=== PATIENT | female | born 1985 | race Caucasian/White ===

== ENCOUNTER 2021-10-31 11:56 | Emergency (ER) | payer OTHER, SELFPAY ==
[2021-10-31 11:57] VITALS: BP 147/66; PULSE 79; RESP 16; TEMP 36.5; O2SAT 98; BMI 25.0
--- NOTE | 2021-10-31 12:28 | ED_ITS ---
HPI - Eye Problem General Chief complaint: Eye Problems Stated complaint: Swollen eye Time Seen by Provider: 10/31/21 12:12 Source: patient Mode of arrival: ambulatory Limitations: no limitations History of Present Illness HPI Narrative: 36 y/o female presents to the ER with left eye lid redness, swelling and discomfort when she woke up this morning. She denies any discharge or crusting and no vision changes. No sensation or foriegn body. She does not wear contacts and only wears glasses as needed. She has no URI symptoms. chief complaint: eye pain and eye redness Onset (ago): hour(s) Onset description: sudden Duration: constant Location: left eye Eye Symptoms: redness and pain Place: home Mechanism: none Severity: mild Severity scale (1-10): 4 If Pain, Quality: aching Associated symptoms: none Treatments Prior to Arrival: none Related Data Previous Rx's Medication Instructions Recorded erythromycin 5 mg/gram (0.5 %) eye 0.5 inch OPHTHALMIC (EYE) BID #3.5 10/31/21 ointment g Allergies Allergy/AdvReac Type Severity Reaction Status Date / Time acetaminophen [From TYLENOL] Allergy Unknown UNKNOWN Unverified 05/22/20 16:15 shellfish derived Allergy Unknown HIVES Unverified 05/22/20 16:15 [SHELLFISH DERIVED] From PHENERGAN Allergy Unknown MUSCLE Uncoded 05/22/20 16:15 SPASMS Review of Systems Constitutional: Constitutional: Denies chills and Denies fever(s) Eyes: Eyes: Denies blurry vision, Denies change in vision, Denies diplopia, Denies eye discharge, Denies dry eyes, Reports irritation, Denies itchy eyes, Denies loss of vision, Reports eye pain and Denies photophobia Comments: swollen upper eye lid ENT: Denies otalgia, Denies lip swelling and Denies nasal discharge Respiratory: Respiratory: Denies cough Integumentary/Breasts: Skin/Breast: Reports swelling, Reports change in pigmentation, Denies lesions and Denies rash Neurologic: Denies loss of vision and Denies Other visual disturbances Allergic/Immunologic: Allergic/Immunologic: Denies urticaria, Denies itchy eyes and Denies lip swelling PMFSH Social History Social History Advance Directives: No Advance Directives Information Provided: No Physical Exam Vital Signs: Vital Signs: Last Vital Signs Temp 97.7 F 02/26/22 11:57 Pulse 79 10/31/21 11:57 Resp 16 10/31/21 11:57 BP 147/66 H 10/31/21 11:57 Pulse Ox 98 10/31/21 11:57 BMI result Body Mass Index 25.0 Const: General: cooperative, healthy appearing, comfortable and no acute distress Nutritional Appearance: average body habitus Orienta tion/consciousness: patient oriented x3 Limitations: no limitations HENMT: Head: Yes normal to inspection, Yes normocephalic and Yes atraumatic Ears: hearing grossly normal bilaterally and external ears normal General nose exam: Normal external nose present and Normal nares present Face and sinus: Yes normal facial exam and Yes face symmetric Mouth: Normal oral and palatal mucosa present and lip normal Throat: Yes posterior oropharynx normal Eyes: Visual Trevizo: normal visual trevizo by confrontation Alignment and Position: alignment normal Periorbital: periorbital findings normal Eyelids: Yes eyelid abnormality (erythema and swelling of left upper eyelid. everted lid showed hordeolum) Conjunctivae: conjunctivae normal Sclerae: sclerae normal Corneas: corneas normal Pupils: Equal, round and reactive pupils present EOM: EOMs intact bilaterally Direct Ophthalmoscopy: No photophobia Neck: Neck: Yes normal visual inspection, Yes full ROM and Yes no lymphadenopathy Chest: Chest palpation & inspection: normal inspection of the chest Resp: Effort & Inspection: normal respiratory effort and able to speak in complete sentences Skin: General skin exam: no rashes or lesions noted Neuro: General: patient oriented x3 Cranial nerves: Yes Equal, round and reactive pupils present Extrem: General: Yes normal to inspection Psych: Appearance: grossly normal and well kempt Mental Status: mental status grossly normal Course Course Course Narrative: 36 y/o female presenting with acute onset of left upper eyelid pain, swelling and erythema when she woke up today. Eyelid was inverted and showed an internal hordeolum. No evidence of conjunctivitis. Management d/w patient including warm soaks and NSAID for pain. Will give rx for erythromycin ointment as well. Stable for d/c home with supportive care. Work note provided per request. Discharge Plan Discharge Clinical Impression: Internal hordeolum of left eye Patient Disposition: Home, Self-Care Instructions: Ghislaine (ED) Additional Instructions: Use warm compresses to the left eye several times per day Use the prescribed antibiotic eye ointment until symptoms resolved If you develop new or worsening symptoms call 911 or come back to the ER for further evaluation. Prescriptions: New erythromycin 5 mg/gram (0.5 %) ointment 0.5 inch ophthalmic (eye) BID Qty: 3.5 0RF Stand Alone Forms: Work/School Release
[2021-10-31 12:53] VITALS: BP 145/64; PULSE 80; RESP 17; TEMP 36.6; O2SAT 98
== END 2021-10-31 12:57 | disposition home or self-care (01) ==
LOC: HO.ED 12:36
PROVIDERS: Emergency Provider Emergency Medicine Emergency Medical Services
DX: H00.024 Hordeolum internum left upper eyelid (principal); H57.12 Ocular pain, left eye
CPT/HCPCS: 99283; 99284

== ENCOUNTER 2022-03-03 10:46 | Emergency (ER) | payer OTHER, SELFPAY ==
[2022-03-03 11:20] VITALS: BP 136/88; PULSE 60; RESP 18; O2SAT 100; BMI 26.6
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
[2022-03-03 11:49] VITALS: TEMP 36.7
== END 2022-03-03 11:52 | disposition home or self-care (01) ==
PROVIDERS: Emergency Provider Emergency Medicine
DX: Z02.79 Encounter for issue of other medical certificate (principal); S93.401D Sprain of unspecified ligament of right ankle, subsequent encounter; S09.90XD Unspecified injury of head, subsequent encounter; V29.9XXD Motorcycle rider (driver) (passenger) injured in unspecified traffic accident, subsequent encounter
CPT/HCPCS: 99282

== ENCOUNTER 2023-02-01 07:11 | Emergency (ER) | payer OTHER, SELFPAY ==
--- NOTE | ~2023-02-01 | XR_ITS ---
EXAMINATION: XR LUMBOSACRAL SPINE CLINICAL INFORMATION: Back pain COMPARISON: None available. TECHNIQUE: Three views of the lumbosacral spine. FINDINGS: The vertebral bodies and posterior elements are normal. The disc spaces are preserved and the vertebral alignment is normal. The paraspinal soft tissues are normal. XR/XR lumbar spine 2-3V IMPRESSION: Unremarkable examination.
[2023-02-01 07:14] VITALS: BP 132/103; PULSE 114; RESP 16; TEMP 36.6; O2SAT 100; BMI 27.5
--- NOTE | 2023-02-01 07:38 | ED_ITS ---
HPI - Back Pain/Injury General Chief Complaint: Back Pain/Injury Stated Complaint: Back pain/R hip pain Time Seen by Provider: 02/01/23 07:33 Source: patient Mode of arrival: ambulatory Limitations: no limitations History of Present Illness HPI Narrative: Back pain with right hip pain, she states she is hard on her body. A few weeks of back pain but now with the addition of hip pain. MD elicited complaint: back pain Pertinent past history: prior back pain Onset (ago): week(s) Timing: constant Severity: mild Related Data Previous Rx's Medication Instructions Recorded erythromycin 5 mg/gram (0.5 %) eye 0.5 inch ophthalmic (eye) BID #3.5 10/31/21 ointment grams erythromycin 5 mg/gram (0.5 %) eye 1 appl ophthalmic-Right Q4H 7 days 01/03/23 ointment #3.5 grams valacyclovir 1 gram tablet 1,000 mg PO TID 7 days #21 tabs 01/03/23 naproxen 500 mg tablet (Naprosyn) 500 mg PO BID #20 tabs 02/01/23 Allergies Allergy/AdvReac Type Severity Reaction Status Date / Time acetaminophen [From TYLENOL] Allergy Unknown UNKNOWN Verified 01/03/23 13:19 shellfish derived Allergy Unknown HIVES Verified 01/03/23 13:19 [SHELLFISH DERIVED] From PHENERGAN Allergy Unknown MUSCLE Uncoded 03/03/22 11:20 SPASMS Review of Systems Review of Systems: Yes all other systems are reviewed and are negative Musculoskeletal: Musculoskeletal: Reports back pain Neurologic: Denies Sensory deficit (Neuro) [facility] Social History Social History Alcohol intake: current Alcohol intake frequency: holidays/special occasions only Patient Tobacco Use Status: Current everyday Tobacco user Smoked in Last 30 Days: Yes Use of substances other than those prescribed or required for medical reasons: No Advance Directives: No Advance Directives Information Provided: No Patient : No Physical Exam Vital Signs: Vital Signs: Last Vital Signs Temp 97.9 F 02/01/23 07:14 Pulse 114 H 02/01/23 07:14 Resp 16 02/01/23 07:14 BP 132/103 H 02/01/23 07:14 Pulse Ox 100 02/01/23 07:14 O2 Del Method Room Air 02/01/23 07:14 BMI result Body Mass Index 27.5 Const: Other: anxious, guarded General: healthy appearing Nutritional Appearance: average body habitus Orientation/consciousness: oriented to person and patient oriented x3 Limitations: no limitations HEENT: Head: Yes normal to inspection Ears: external ears normal General nose exam: Normal external nose present Mouth: Normal oral and palatal mucosa present and oropharynx normal Throat: Yes posterior oropharynx normal Eyes: General: appearance normal, both eyes and all related structures Neck: Other: supple Neck: Yes normal visual inspection Chest: Chest palpation & inspection: normal inspection of the chest Resp: Auscultation: clear to auscultation bilaterally Cardio: Jugular venous distension: no JVD Rate: regular rate Rhythm: regular rhythm Heart sounds: S1 normal heart sound present and S2 normal heart sound present GI: Inspection: Yes normal to inspection Palpation (GI): Soft to palpation, nontender and No hepatosplenomegaly present Auscultation: normal bowel sounds Back/Spine/Pelvis: Other: SI and sciatic tenderness Skin: General skin exam: no rashes or lesions noted Neuro: General: oriented to person and patient oriented x3 Cranial nerves: Yes CN's II-XII intact bilaterally Motor exam (neuro): 5/5 motor strength present throughout Sensory Exam: No Sensory deficit (Neuro) Extrem: General: Yes normal to inspection Psych: Other: anxious guarded Course Reevaluation(s) Reevaluation #1: Patient with sciatica and SI joint tenderness will treat with NSAIDs and physical therapy follow up Time: 08:51 Medications Administered Discontinued Medications Generic Name Dose Route Start Last Admin Trade Name Freq PRN Reason Stop Dose Admin Cyclobenzaprine HCl 10 mg 02/01/23 08:05 02/01/23 08:43 Cyclobenzaprine Hcl 10 Mg Tablet PO 02/01/23 08:06 Not Given ONCE ONE Ketorolac Tromethamine 60 mg 02/01/23 08:05 02/01/23 08:40 Ketorolac Tromethamine 60 Mg/2 Ml Vial IM 02/01/23 08:06 60 mg ONCE ONE Administration Medical Decision Making Differential Diagnosis Differential Diagnoses: The differential diagnosis associated with the presentation includes (sciatica, SI joint tenderness, lumbago, hip pain) Hip has full range of motion non tender Independent Interpretation I performed an independent interpretation of an: Plain X-Ray (Lumbar films with no DJD) Discharge Plan Discharge Clinical Impression: Lumbar radiculopathy, Sciatica, Strain of lumbar region Patient Disposition: Home, Self-Care Instructions: Lumbar Radiculopathy (ED), Back Pain (ED), Lower Back Exercises (ED) Prescriptions: New naproxen [Naprosyn] 500 mg tablet 500 mg PO BID Qty: 20 0RF No Action erythromycin 5 mg/gram (0.5 %) ointment 0.5 inch ophthalmic (eye) BID Qty: 3.5 0RF valacyclovir 1 gram tablet 1,000 mg PO TID 7 Days Qty: 21 0RF erythromycin 5 mg/gram (0.5 %) ointment 1 appl ophthalmic-Right Q4H 7 Days Qty: 3.5 0RF Referrals: Physician,Unknown J [Primary Care Provider] - 5 days
[2023-02-01] MEDS: Ketorolac Tromethamine 60 MG/2 ML VIAL IM (08:40)
== END 2023-02-01 09:56 | disposition home or self-care (01) ==
PROVIDERS: Emergency Provider Emergency Medicine
DX: M54.16 Radiculopathy, lumbar region (principal); M54.41 Lumbago with sciatica, right side; F17.200 Nicotine dependence, unspecified, uncomplicated; S39.012A Strain of muscle, fascia and tendon of lower back, initial encounter; X58.XXXA Exposure to other specified factors, initial encounter; Y93.9 Activity, unspecified; Y92.9 Unspecified place or not applicable; Y99.9 Unspecified external cause status
CPT/HCPCS: 72100; 96372; 99284; J1885

== ENCOUNTER 2023-06-18 13:10 | Outpatient (AMB) | payer OTHER, SELFPAY ==
[2023-06-18 13:32] VITALS: BP 146/76; PULSE 82; O2SAT 98
--- NOTE | 2023-06-18 13:32 | MHC.OFFWIV ---
Intake Vital Signs 06/18/23 13:32 Height 5 ft 4 in BP 146/76 H Blood Pressure Location Lt brachial Position Sitting Pulse 82 Pulse Source Pulse Oximeter Pulse Oximetry (%) 98 Oxygen Delivery Method Room Air Intake Visit Reasons: EP RT hand Slammed hand in Car door Intake Note: Patient is here with right swollen hand after being slammed in her car door. She has been vomitting. Patient Tobacco Use Status: Current everyday Tobacco user Allergies acetaminophen [From TYLENOL] Allergy (Unknown, Verified 06/18/23 13:36) UNKNOWN shellfish derived [SHELLFISH DERIVED] Allergy (Unknown, Verified 06/18/23 13:36) HIVES From PHENERGAN Allergy (Unknown, Uncoded 06/18/23 13:36) MUSCLE SPASMS Do you need a note to return to daycare/school/sports/work: No HPI HPI Comments History of Present Illness Details This is a 38-year-old female who presents to the office today for sick visit. Patient complaining of right hand pain and swelling after she slammed her hand in a car door. Patient has been vomiting from the pain. She is extremely anxious with rapid/pressured speech. It is very difficult to obtain history from the patient as she is extremely rapid and pressured in her speech and she is very hyperactive. [facility] Social History Alcohol intake: current Alcohol intake frequency: holidays/special occasions only Patient Tobacco Use Status: Current everyday Tobacco user Review of Systems Const All systems reviewed & are unremarkable except as noted in HPI and below Reports no additional complaints Eyes Reports no additional complaints ENT Reports no additional complaints Card Reports no additional complaints Resp Reports no additional complaints GI Reports no additional complaints Reports no additional complaints Musc Reports no additional complaints Skin/Breast Reports system reviewed and no additional complaints, except as documented Neuro Reports no additional complaints Psych Reports no additional complaints Endo Reports no additional complaints Tonny/Lymph Reports no additional complaints Aller/Immun Reports no additional complaints Physical Exam Const Other: Vital signs reviewed. Constitutional: Non-toxic appearing. Well-developed and well-nourished. HEENT: Normocephalic and atraumatic. Skin: Warm and dry. No rashes or lesions noted. Neck: Full and painless range of motion. No cervical lymphadenopathy. Cardio: Regular rate. No lower extremity edema. No JVD. Pulmonary: No respiratory distress. No accessory muscle usage. Gastrointestinal: Soft, nontender, and nondistended in all 4 quadrants. Intermittent retching and vomiting. Musculoskeletal: Swelling and bruising of the dorsal aspect of the right hand mostly at the 3rd and 4th metacarpal region. There is tenderness to palpation at the 3rd and 4th metacarpals. Neuro: Alert and oriented x4. Cranial nerves 2-12 grossly intact. No focal deficits appreciated. Psych: Rapid and pressured speech. Patient is very hyperactive. Assessment & Plan Assessment & Plan (1) Right hand pain: Code(s): M79.641 - Pain in right hand Plan: This is a 38-year-old female presenting to the office complaining of right hand pain and swelling after closing her hand in a car door. On physical examination, there is swelling and ecchymosis of the dorsal aspect of the right hand mostly located at the 3rd and 4th metacarpal region. An x-ray of the right hand was obtained, which was negative for acute fracture or dislocation. Patient very likely has a contusion. Patient was vomiting in the office from the pain. She was given p.o. ibuprofen 800 mg, PO acetaminophen 975 mg, and PO ondansetron 4 mg with significant improvement in her symptoms. Patient was given an Deepak wrap to help with compression and she was given a shoulder sling as her pain improved with immobilization. Patient was given an orthopedic surgery referral for further evaluation. Recommend rest/activity modification, ice to the area, and elevation of the extremity. Continue with acetaminophen/ibuprofen for pain management as long as patient has no medical contraindications. Patient has an allergy listed to acetaminophen but she states that she has taken acetaminophen in the past without allergic reaction. Patient was advised to follow-up here or proceed to the emergency room for persistent/worsening symptoms. Patient verbalizes her understanding and she is in agreement with the plan. (2) Nausea & vomiting: Code(s): R11.2 - Nausea with vomiting, unspecified Qualifiers: Vomiting type: unspecified Qualified Code(s): R11.2 - Nausea with vomiting, unspecified Plan: Of note, patient had intermittent retching and vomiting during her office visit secondary to pain. Her abdominal exam is benign her abdomen is soft, nontender, and nondistended. Patient was sent home on p.o. ondansetron 4 mg every 8 hours as needed for nausea/vomiting. Orders: Orders AMB Acetaminophen Adult Dose Today M79.641 - Pain in right hand XR hand RT 2V Today M79.641 - Pain in right hand AMB Ibuprofen Adult Dose Today M79.641 - Pain in right hand AMB Ondansetron Adult Dose Today R11.2 - Nausea with vomiting, unspecified Medications: New ibuprofen 800 mg (4 x 200 mg) PO ONCE 4 tabs 0RF M79.641 - Pain in right hand acetaminophen 1,000 mg (2 x 500 mg) PO TID PRN 30 caps 0RF pain acetaminophen 975 mg (3 x 325 mg) PO ONCE 3 tabs 0RF M79.641 - Pain in right hand ondansetron 4 mg translingual ONCE 1 tab 0RF R11.2 - Nausea with vomiting, unspecified ibuprofen Do not take in combination with naproxen. Take with food. 800 mg PO Q8H PRN 30 tabs 0RF pain ondansetron 4 mg PO Q8H PRN 20 tabs 0RF nausea and vomiting Coding Level of Care Code Est Pt Level 3 (48001) Diagnoses Right hand pain M79.641 Nausea and vomiting, unspecified vomiting type R11.2 Vomiting type: unspecified
== END 2023-06-18 14:32 | disposition home or self-care (01) ==
PROVIDERS: Visit Provider Physician Assistant Medical
DX: M79.641 Pain in right hand (principal); R11.2 Nausea with vomiting, unspecified
CPT/HCPCS: 99051; 99213

== ENCOUNTER 2023-06-18 13:56 | Outpatient (REF) | payer OTHER, SELFPAY ==
--- NOTE | ~2023-06-18 | XR_ITS ---
EXAMINATION: XR HAND, RIGHT CLINICAL INFORMATION: Pain in right hand COMPARISON: None available. TECHNIQUE: PA, lateral, and oblique views of the right hand. FINDINGS: The bones and soft tissues are normal. No fracture. Alignment is anatomic. Joint spaces are maintained. No erosions or soft tissue calcifications. XR/XR hand RT 2V IMPRESSION: Unremarkable right hand.
== END 2023-06-18 13:57 | disposition home or self-care (01) ==
LOC: HO.HMGCX 13:56
PROVIDERS: Visit Provider Physician Assistant Medical
DX: M79.641 Pain in right hand (principal)
CPT/HCPCS: 73120

== ENCOUNTER 2024-03-06 09:38 | Emergency (ER) | payer OTHER, SELFPAY ==
--- NOTE | ~2024-03-06 | XR_ITS ---
EXAMINATION: XR SHOULDER, LEFT CLINICAL INFORMATION: Recurrent shoulder dislocation COMPARISON: None available. TECHNIQUE: Two views of the left shoulder. FINDINGS: The bones and soft tissues are normal. No fracture or dislocation. Glenohumeral and acromioclavicular alignment is anatomic with normal joint space. No abnormal soft tissue calcifications. XR/XR shoulder LT min 2V IMPRESSION: Normal left shoulder.
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
[2024-03-06 09:46] VITALS: BP 142/100; PULSE 92; RESP 18; TEMP 36.7; O2SAT 96; BMI 27.3
[2024-03-06 11:14] VITALS: BP 129/100; PULSE 92; RESP 20; TEMP 36.8; O2SAT 97
== END 2024-03-06 11:16 | disposition home or self-care (01) ==
PROVIDERS: Emergency Provider Emergency Medicine; PCP Internal Medicine
DX: M25.512 Pain in left shoulder (principal)
CPT/HCPCS: 73030; 99283

== ENCOUNTER 2024-04-26 14:23 | Outpatient (AMB) | payer OTHER, SELFPAY ==
--- NOTE | 2024-04-26 14:26 | MHC.OFFWIV ---
Intake Vital Signs 04/26/24 14:28 Height 5 ft 4 in Weight 157 lb BMI 26.9 BP 112/74 Blood Pressure Location Rt brachial Position Sitting Pulse 97 Pulse Source Pulse Oximeter Pulse Oximetry (%) 98 Oxygen Delivery Method Room Air Intake Visit Reasons: EP rash Intake Note: Patient here for break outs on face and buttocks. Patient Tobacco Use Status: Current everyday Tobacco user Allergies acetaminophen [From TYLENOL] Allergy (Unknown, Verified 04/26/24 14:29) UNKNOWN shellfish derived [SHELLFISH DERIVED] Allergy (Unknown, Verified 04/26/24 14:29) HIVES From PHENERGAN Allergy (Unknown, Uncoded 04/26/24 14:29) MUSCLE SPASMS Do you need a note to return to daycare/school/sports/work: No HPI HPI Comments History of Present Illness Details Patient is a 39-year-old female complaining of acne on her face and her buttocks. 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 She states it has been like this for a couple of weeks and getting worse. She states the whole crew she works with has a same problem due to their working conditions. [facility] Social History Alcohol intake: current Alcohol intake frequency: holidays/special occasions only Patient Tobacco Use Status: Current everyday Tobacco user Review of Systems Const All systems reviewed & are unremarkable except as noted in HPI and below Physical Exam Const General: cooperative, healthy appearing, comfortable, no acute distress and well developed Orientation/consciousness: patient oriented x3 Limitations: no limitations HEENT Head: Yes normal to inspection Eyes General: appearance normal, both eyes and all related structures Neck Neck: Yes normal visual inspection and Yes full ROM Resp Effort & Inspection: normal respiratory effort and able to speak in complete sentences Skin Other: multiple pustules on face and buttocks Neuro General: patient oriented x3 Extrem General: Yes normal to inspection Assessment & Plan Assessment & Plan (1) Acne vulgaris: Code(s): L70.0 - Acne vulgaris Plan: Educated patient on use of doxycycline Plan See above Medications: New mupirocin 2% 1 appl topical TID 22 grams 0RF doxycycline hyclate Take with food to lessen GI side effects; stay out of the sun while using this medication 100 mg PO Q24H 14 tabs 0RF Coding Level of Care Code New Pt Level 3 (52826) Diagnoses Acne vulgaris L70.0
[2024-04-26 14:28] VITALS: BP 112/74; PULSE 97; O2SAT 98; BMI 26.9
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
== END 2024-04-26 14:57 | disposition home or self-care (01) ==
PROVIDERS: PCP Internal Medicine; Visit Provider Physician Assistant
DX: L70.0 Acne vulgaris (principal)
CPT/HCPCS: 99203

== ENCOUNTER 2024-06-10 23:19 | Emergency (ER) | payer OTHER, SELFPAY ==
--- NOTE | 2024-06-10 | ECG_ITS ---
Test Reason : CHEST PAIN Blood Pressure : / mmHG Vent. Rate : 062 BPM Atrial Rate : 062 BPM P-R Int : 140 ms QRS Dur : 086 ms QT Int : 416 ms P-R-T Axes : 002 022 045 degrees QTc Int : 422 ms Normal sinus rhythm Normal ECG When compared with ECG of 07-SEP-2019 06:42, No significant change was found Referred By: Generic ED Physician Electronically Signed By:PIPER POWELL
--- NOTE | ~2024-06-10 | XR_ITS ---
EXAMINATION: XR CHEST CLINICAL INFORMATION: Chest discomfort COMPARISON: Chest 09/07/2019 TECHNIQUE: 2 views of the chest were obtained. FINDINGS: Normal appearance of the cardiomediastinal structures. No effusions or pneumothoraces. No focal pulmonary consolidation. Normal pattern of pulmonary vasculature. No skeletal abnormalities identified. XR/XR chest 2V IMPRESSION: Normal chest. Lungs clear. Electronically signed by: Teo Landrum MD 06/11/2024 02:17 AM EDT
[2024-06-11 00:08] VITALS: BP 143/90; PULSE 65; RESP 18; TEMP 36.7; O2SAT 97; BMI 25.1
[2024-06-11 00:26] LABS: MANUAL DIFF FLAG NO
[2024-06-11 00:29] LABS: Basophils Absolute Auto 0.1 X10*3/uL (0.0-0.2); Basophils Percent Auto 0.9 % (0-2); Eosinophils Percent Auto 0.7 % (0-4); Hematocrit 36.8 % (37.0-47.0); Hemoglobin 12.4 g/dl (12.0-16.0); Imm Gran Abs Auto 0.01 X10*3/uL (0.00-0.03); Imm Gran Pct Auto 0.2 % (0.0-0.4); Lymphocytes Percent Auto 35.8 % (20-40); Mean Corpuscular HGB Conc 33.7 g/dl (31.0-35.0); Mean Corpuscular Hemoglobin 30.8 pg (27.0-33.0); Mean Corpuscular Volume 91.5 fL (80.0-98.0); Mean Platelet Volume 9.4 fL (9.4-12.3); Monocytes Absolute Auto 0.4 X10*3/uL (0.1-1.2); Neutrophils Absolute Auto 3.1 x10*3/uL (2.0-8.3); Neutrophils Percent Auto 55.4 % (45-73); Platelet Count 282 X10*3/uL (160-400); Red Blood Count 4.02 X10*6/uL (4.20-5.50); Red Cell Distribution Width 16.6 % (11.0-16.0); White Blood Count 5.6 X10*3/uL (4.8-10.8)
[2024-06-11 00:42] LABS: Alanine Aminotransferase 17 U/L (0-31); Albumin Level 4.3 g/dL (3.5-5.0); Alkaline Phosphatase 57 U/L (39-117); Anion Gap 13 (12-20); Aspartate Amino Transferase 19 U/L (5-31); Bilirubin Total 0.3 mg/dL (0.0-1.0); Blood Urea Nitrogen 6 mg/dL (9-16); Calcium 8.5 mg/dL (8.4-10.2); Carbon Dioxide 24 mmol/L (22-29); Chloride 108 mmol/L (96-108); Creatinine Clr Calc Pharmacy 82.6; Estimated Glomerular Filt Rate > 60; Glucose Random 109 mg/dL (60-115); Sodium 141 mmol/L (135-145); Total Protein 6.5 g/dL (6.5-8.0)
[2024-06-11 00:49] LABS: Troponin-I High Sensitivity < 2.7 ng/L (<3.5-17.0)
== END 2024-06-11 05:43 | disposition left against medical advice (07) ==
LOC: HO.ED 06-11 05:16
PROVIDERS: Emergency Provider Emergency Medicine
DX: R07.9 Chest pain, unspecified (principal); M25.511 Pain in right shoulder; Z53.21 Procedure and treatment not carried out due to patient leaving prior to being seen by health care provider
CPT/HCPCS: 36415; 71046; 80053; 84484; 85025; 93005; 99281; 99283

== ENCOUNTER 2024-12-14 10:06 | Outpatient (AMB) | payer MEDICARE, MEDICAID, SELFPAY ==
[2024-12-14 10:38] VITALS: BP 110/64; PULSE 84; TEMP 36.7; O2SAT 99; BMI 29.4
--- NOTE | 2024-12-14 10:38 | AM.OFFWIN_ITS ---
Intake Vital Signs 12/14/24 10:38 Height 5 ft 5 in Weight 176 lb 8 oz BMI 29.4 BP 110/64 Blood Pressure Location Rt brachial Position Sitting Pulse 84 Pulse Source Pulse Oximeter Temp 98.0 F Temp Source Oral Pulse Oximetry (%) 99 Oxygen Delivery Method Room Air Intake Visit Reasons: EP Lower back pain, ?UTI Intake Note: Pt presents to the office today for c/o lower back pain, fatigue, and urinary frequency x1 month. Patient Tobacco Use Status: Current everyday Tobacco user Allergies acetaminophen [From TYLENOL] Allergy (Unknown, Verified 12/14/24 10:38) UNKNOWN shellfish derived [SHELLFISH DERIVED] Allergy (Unknown, Verified 12/14/24 10:38) HIVES bee pollen [bee stings] Allergy (Verified 12/14/24 10:38) Anaphylaxis From PHENERGAN Allergy (Unknown, Uncoded 12/14/24 10:38) MUSCLE SPASMS Medication List - Last Reconciled 12/14/24 by Jaclyn Mueller MD ibuprofen 600 mg PO Q6H PRN nicotine (polacrilex) 4 mg buccal Q2H PRN HPI EP Lower back pain, ?UTI HPI Details History - The patient is a 39-year-old female pr esenting with symptoms suggestive of a Urinary Tract Infection (UTI). - The condition began approximately thre e weeks prior with urinary frequency, later accompanied by systemic symptoms like fatigue, thermal dysregulation, and back pain, with more recent nocturnal incontinence suggesting progression. - Symptoms include intermittent hot and cold sensations, and a pronounced need to urinate frequently and urgently, coupled with discomfort localized to the left posterior lumbar region. - Reports extensive fluid consumption, t rying to avoid bladder infection thinking that is what is causing the problem - Past medical history includes sciatica , a diagnosis of fibromyalgia, and a back fracture, contributing to recurrent back pain. - have anxiety disorder and does not lik e to see So has not seen her primary care in while Problem List - Urinary Tract Infection (UTI) suspecte d - excessive fluid intake - history of Sciatica - history of Fibromyalgia Patient Instructions - Reduce liquid intake, particularly valerie iding fluids within four hours of bedtime. - Carefully track and document the volum e and type of all fluid intake. - Take prescribed antibiotics as directe d and monitor symptoms for any improvement. - If symptoms do not improve or worsen, follow up with the primary care provider for further evaluation and potential laboratory testing. - Avoid excessive worry about diabetes, sugar was within normal limit, last set of labs done June of 2024 reviewed Review of Systems - General: No fever no chills - Neurological: No headaches no dizziness - Ear nose throat: No sore throat no hearing difficulty no ear pain - Cardiovascular: No syncope, no chest pain, no palpitations - Gastrointestinal: No nausea vomiting or diarrhea Physical Exam General: No acute distress HEENT: No acute findings Neck: Supple Respiratory system: Able to talk in full sentences, no audible wheeze Gastrointestinal: Exam is benign bowel sounds positive Back examination benign Extremities: No new findings CODING TECHNICIAN: Alert awake oriented x3 motor sensory intact Skin: Normal turgor PFSH Social History Alcohol intake: current Alcohol intake frequency: holidays/special occasions only Patient Tobacco Use Status: Current everyday Tobacco user Physical Exam Vital Signs: Last Vital Signs Temp 98.0 F 12/14/24 10:38 Pulse 84 12/14/24 10:38 BP 110/64 12/14/24 10:38 Pulse Ox 99 12/14/24 10:38 Oxygen Delivery Method Room Air 12/14/24 10:38 BMI result Body Mass Index 29.4 Results AMB Urinalysis, Automated UA Leukoctes 0 Vince/uL Last Edit by Gale Lawson CMA on 12/14/24 10:40 UA Nitrite Negative Last Edit by Gale Lawson CMA on 12/14/24 10:40 UA Urobilinogen 0.2 mg/dL Last Edit by Gale Lawson CMA on 12/14/24 10:40 UA Protein 0 mg/dL Last Edit by Gale Lawson CMA on 12/14/24 10:40 UA pH 6.0 Last Edit by Gale Lawson CMA on 12/14/24 10:40 UA Blood 0 Kehinde/uL Last Edit by Gale Lawson CMA on 12/14/24 10:40 UA Specific [place] 1.010 Last Edit by Gale Lawson CMA on 12/14/24 10:40 UA Ketone Negative Last Edit by Gale Lawson CMA on 12/14/24 10:40 UA Bilirubin 0 mg/dL Last Edit by Gale Lawson CMA on 12/14/24 10:40 UA Glucose 0 mg/dL Last Edit by Gale Lawson CMA on 12/14/24 10:40 Results Reviewed Results Reviewed: Laboratory Last Values Urine pH (Auto) 6.0 12/14/24 10:39 Specific [place] (Auto) 1.010 12/14/24 10:39 Urine Protein (Auto) 0 mg/dL 12/14/24 10:39 Glucose (UA)(Auto) 0 mg/dL 12/14/24 10:39 Urine Ketones (Auto) Negative 12/14/24 10:39 Urine Blood (Auto) 0 Kehinde/uL 12/14/24 10:39 Urine Nitrite (Auto) Negative 12/14/24 10:39 Urine Bilirubin (Auto) 0 mg/dL 12/14/24 10:39 Urine Urobilinogen (Auto) 0.2 mg/dL 12/14/24 10:39 Leukocyte Esterase (Auto) 0 Vince/uL 12/14/24 10:39 Assessment & Plan Assessment & Plan (1) Polyuria: Code(s): R35.89 - Other polyuria (2) Excessive fluid intake: Code(s): R63.8 - Other symptoms and signs concerning food and fluid intake (3) Anxiety, generalized: Code(s): F41.1 - Generalized anxiety disorder Plan History - The patient is a 39-year-old female presenting with symptoms suggestive of a Urinary Tract Infection (UTI). - The condition began approximately three weeks prior with urinary frequency, later accompanied by systemic symptoms like fatigue, thermal dysregulation, and back pain, with more recent nocturnal incontinence suggesting progression. - Symptoms include intermittent hot and cold sensations, and a pronounced need to urinate frequently and urgently, coupled with discomfort localized to the left posterior lumbar region. - Reports extensive fluid consumption, trying to avoid bladder infection thinking that is what is causing the problem - Past medical history includes sciatica, a diagnosis of fibromyalgia, and a back fracture, contributing to recurrent back pain. - have anxiety disorder and does not like to see Dr. Calle has not seen her primary care in while Problem List - Urinary Tract Infection (UTI) suspected - excessive fluid intake - history of Sciatica - history of Fibromyalgia Patient Instructions - Reduce liquid intake, particularly avoiding fluids within four hours of bedtime. - Carefully track and document the volume and type of all fluid intake. - Take prescribed antibiotics as directed and monitor symptoms for any improvement. - If symptoms do not improve or worsen, follow up with the primary care provider for further evaluation and potential laboratory testing. - Avoid excessive worry about diabetes, sugar was within normal limit, last set of labs done June of 2024 reviewed Orders: Orders AMB Urinalysis Automated Today ABHINAV Tinajero M54.50 - Low back pain, unspecified Medications: New nitrofurantoin macrocrystal must administer with a meal/food 100 mg PO BID 3 days 6 caps 0RF Jaclyn Mueller MD Coding Level of Care Code Est Pt Level 3 (02549) Diagnoses Polyuria R35.89 Excessive fluid intake R63.8 Anxiety, generalized F41.1
--- OUTSIDE RECORDS SUMMARY | 2024-12-14 10:46 | XMS_ITS | Data Portability ---
[facility] Address [address] [place] [address] Assessment No assessment recorded. Plan of Treatment Reminders Order Date Submit Date Provider Last Modified By Organization Details Last Modified Time Details Appointments None recorded. Lab None recorded. Referral None recorded. Procedures None recorded. Surgeries None recorded. Imaging None recorded. Medication Orders valacyclovi r 1 gram tablet 2022 023 [facility] #[id number], [address] [facility] [place], [address], 12:49:30 Patient TargetsNo targets recorded. Patient Instructions Encounter Date Encounter Id Patient Instructions Last Modified By Organization Details Last Modified Time 11/17/2022 [id number] cold sores: care instructions [email or web address] Not available 11/17/2022 12:49:44 cold sores education Not available 11/17/2022 12:49:44 Take the medication as prescribed. See printed instructions. Follow-up with your doctor as needed. Seek Emergency Medical evaluation for any worsening symptoms. [email or web address] Not available 11/17/2022 12:50:20 Reason for Referral None Reported. Problems Name Problem SNOMED Code Status Onset Date Resolution Date Notes Provider Name and Address Organization Details Recorded Time Asthma 739058453 Active 2022 Meenakshisumaya jacobo, PA - [facility] 3 12:06:00 Posttraumatic stress disorder 22356224 Active 2022 Meenakshi Pinedale odalis PA - [facility] 12:08:33 Problem Notes None recorded. Medical Equipment None Reported. Allergies Allergen ID Allergen Name Allergen Category Reaction Reaction Severity Criticality Documentation Date Start Date Code Code System Note Provider Name and Address Organization Details Recorded Time 194699 Tylenol medicatio n Not available Not available Not available 11/17/202230001 3 RxNorm Meenakshi Mike jacobo, PA - [facility] 12:05:42 197227 ibuprofen medicatio n Not available Not available Not available 11/17/2022 5640 RxNorm Meenakshi Mike null, PA - [facility] 12:05:47 Medications Name Sig Start Date Stop Date Status Note LastModified by Organization Details LastModified Time valacyclovir 1 gram tablet Take 2 tablets every 12 hours by oral route for 1 day. 2022 active Not Available Not Available Not Avai lable oxcarbazepine active Not Available Not Available Not Available Vitals Date Recorded Body height Oxygen saturation Oxygen saturation in Arterial blood by Pulse oximetry Pain severity - 0-10 verbal numeric rating [Score] - Reported Heart rate Respiratory rate Body temperature Body mass index (BMI) Body weight Systolic blood pressure Diastolic blood pressure Provider Name and Address Organization Details Last Updated DateTime 3 162.56 cm 99 % 99 % 10 93 /min 20 /min 97.8 [degF] 29.9 kg/m2 51639.1 5 g 121 mm[Hg] 86 mm[Hg] Meenakshi Mckeon PA - [facility] 12:07:44 Social History Question Answer Notes LastModified by Organizat ion Details LastModified Time Tobacco Smoking Status Current Every Day Smoker Meenakshi Mike jacobo PA - [facility] 11/17/2022 12:06:20 What Is Your Level Of Alcohol Consumption? None Information not available 11/17/2022 How Much Tobacco Do You Smoke? 0.5 PPD Information not available 11/17/2022 Do You Use Any Illicit Or Recreational Drugs? No Information not available 11/17/2022 Do You Or Have You Ever Used Any Other Forms Of Tobacco Or Nicotine? No Information not available 11/17/2022 Sex: Unknown Functional Status None recorded. Mental Status None recorded. Family History Relationship Description Onset Age of this Age Resolved Age Notes LastModified by Organization Details LastModified Time Father No current problems or disability Not available 11/17 12:06:05 Mother No current problems or disability Not available 11/17 12:06:05 Medical History No medical history recorded. Gynecological HistoryNo gynecological history recorded. Obstetrics History GPAL:G 0 P 0 0 0 0 Immunizations Vaccine Type Date Status Note Provider Nam e and Address Organization Details Recorded Time MMR 8 completed Meenakshi Mike null, PA - [facility] 11/17/2022 12:05:05 MMR 8 completed Meenakshi Pinedale null, PA - [facility] 11/17/2022 12:05:05 COVID-19, mRNA, LNP-S, PF, 30 mcg/0.3 mL dose 1 completed Meenakshi Mike null, PA - [facility] 11/17/2022 12:05:05 Tdap 8 completed Meenakshi Mike null, PA - [facility] 11/17/2022 12:05:05 DTP 8 completed Meenakshi Mike null, PA - [facility] 11/17/2022 12:05:05 DTP 8 completed Meenakshi Pinedale null, PA - [facility] 11/17/2022 12:05:05 DTP 1 completed Meenakshi Mike null, PA - [facility] 11/17/2022 12:05:05 DTP 6 completed Meenakshi Pinedale null, PA - [facility] 11/17/2022 12:05:05 DTP 8 completed Meenakshi Mike null, PA - [facility] 11/17/2022 12:05:05 OPV 8 completed Meenakshi Pinedale null, PA - [facility] 11/17/2022 12:05:05 OPV 1 completed Meenakshi Mike null, PA - [facility] 11/17/2022 12:05:05 OPV 6 completed Meenakshi Mike null, PA - [facility] 11/17/2022 12:05:05 OPV 8 completed Meenakshi Pinedale null, PA - [facility] 11/17/2022 12:05:05 Td (adult), 2 Lf tetanus toxoid, preservative free, adsorbed 9 completed Meenakshi Pinedale null, PA - [facility] 11/17/2022 12:05:05 Td (adult), 2 Lf tetanus toxoid, preservative free, adsorbed 8 completed Meenakshi Pinedale null, PA - [facility] 11/17/2022 12:05:05 Hep B, adolescent or pediatric 8 completed Meenakshi Pinedale null, PA - [facility] 11/17/2022 12:05:05 Hep B, adolescent or pediatric 9 completed Meenakshi Mike null, PA - [facility] 11/17/2022 12:05:05 Hep B, adolescent or pediatric 9 completed Meenakshi Mike null, PA - [facility] 11/17/2022 12:05:05 Hib (HbOC) 8 completed Meenakshi Pinedale null, PA - [facility] 11/17/2022 12:05:05 Past Encounters Encounter ID Performer Location Encounter Start Date Encounter Closed Date Diagnosis/Indication Diagnosis SNOMED-CT Code Diagnosis ICD10 Code Diagnosis Note [id number] [address] [address] 06/19/2018 16:07:57 06/19/2018 17:51:03 [id number] [facility] [address] [place] [address] 07/28/2019 13:14:45 07/28/2019 13:41:00 [id number] [address] [address] 08/27/2021 10:10:39 08/27/2021 12:07:32 [id number] [address] [facility] [address] [place] [address] 11/13/2017 13:06:21 11/13/2017 15:36:18 [id number] [address] [facility] [place] [address] 11/08/2017 13:44:21 11/08/2017 15:13:46 [id number] [address] [place] [address] 02/17/2017 19:40:33 02/17/2017 20:00:29 [id number] [address] [facility] [place] [address] 12/25/2018 19:31:52 12/25/2018 20:32:00 [id number] [address] [facility] [place] [address] 09/09/2020 17:54:45 09/09/2020 19:27:09 [id number] [address] [facility] [place] [address] 07/26/2018 17:45:11 07/26/2018 18:32:41 [id number] [address] [place] [address] 11/23/2016 19:38:25 11/24/2016 11:59:37 [id number] [address] [place] [address] 06/22/2020 17:07:50 06/22/2020 18:28:26 [id number] [address] [facility] [place] [address] 11/13/2018 18:21:21 11/13/2018 18:45:07 [id number] [address] [facility] [place] [address] 02/15/2021 11:49:08 02/15/2021 12:47:41 [id number] [address] [facility] [place] [address] 04/04/2016 16:56:44 04/04/2016 17:27:39 [id number] [address] [facility] [place] [address] 05/26/2015 09:41:23 05/26/2015 10:17:44 [id number] [address] [facility] [place] [address] 10/20/2016 11:16:13 10/20/2016 11:58:59 [id number] [address] [facility] [place] [address] 10/31/2017 19:06:43 10/31/2017 19:54:27 [id number] [address] [facility] [place] [address] 08/09/2018 10:35:13 08/09/2018 11:42:16 [id number] [address] [facility] [place] [address] 03/09/2018 12:53:29 03/09/2018 13:50:11 [id number] [address] [facility] [place] [address] 05/20/2018 19:29:19 05/20/2018 20:04:30 [id number] [address] [facility] [place] [address] 02/27/2022 17:56:18 02/27/2022 19:56:05 [id number] [address] [facility] [place] [address] 04/18/2017 19:20:32 04/18/2017 20:13:42 [id number] [address] [facility] [place] [address] 01/11/2017 19:58:57 01/11/2017 21:12:52 [id number] [address] [facility] [place] [address] 11/19/2018 19:10:58 11/19/2018 20:40:56 [id number] [address] [place] [address] 10/09/2019 10:15:29 10/09/2019 10:54:03 [id number] Simona Blackwood MD [address] [place] [address] 11/17/2022 09:26:59 11/17/2022 12:50:56 Herpes labialis [id number] B00.1 Health Concerns Section Related Observation LastModified by Organization Detai ls LastModified Time None Recorded Concern Status LastModified by Organization Details LastModified Time None Recorded Advance Directives Directive None Recorded Payers Encounter Date Sequence Insurance Name Policy Number Policy Kingsley Covered Member ID Knigsley Member ID Guarantor Name 09/09/2020 1 [facility] (MEDICAID REPLACEMENT - HMO) [facility] Evelia Salazar Koko [id number] Evelia Koko 02/15/2021 1 [facility] (MEDICAID REPLACEMENT - HMO) [facility] Koko [id number] Evelia Koko 08/27/2021 1 [facility] (MEDICAID REPLACEMENT - HMO) [facility] Salazar Koko [id number] Evelia Koko 02/27/2022 1 [facility] (MEDICAID REPLACEMENT - HMO) [facility] Salazar Koko [id number] Evelia Koko 11/17/2022 1 [facility] (MEDICAID REPLACEMENT - HMO) [facility] Salazar Koko [id number] [place] Koko Notes Date Note Type Note Provider Name and Address Organization Details Recorded Time 3 text/html UC Rash/Skin LesionReported bypatient.source of patient informationInformation obtained from patient; Patient arrived at Urgent Care ambulatory Location:mouth Quality:painful;red;swollen Severity:moderate Duration:1 days Context:no new detergent or skin product; no recent change in medication; no recent travel; no recent illness; not affiliated with chemicals/pesticides Alleviating Factors:nothing gives relief Associated Symptoms:no fever;fatigue Treatment History:OTC treatment Abreva with no improvementNotes:37 year old female with history of recurrent cold sores presenting for evaluation of a cold sore which is painful to her left lower lip region getting worse for one day. She has some fatigue. No fever, chills, headache, generalized rash, stiff neck, sore throat, ear pain, cough, chest pain, shortness of breath, GI symptoms or body aches. Simona Blackwood MD [address] [facility] [place], [address], PA - [facility] 11/17/2022 12:57:51 OBGyn Episode No OBEpisode recorded.
--- OUTSIDE RECORDS SUMMARY | 2024-12-14 10:46 | XMS_ITS | Clinical Summary ---
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
== END 2024-12-14 11:57 | disposition home or self-care (01) ==
PROVIDERS: PCP Internal Medicine; Visit Provider Internal Medicine
DX: R35.89 Other polyuria (principal); R63.8 Other symptoms and signs concerning food and fluid intake; F41.1 Generalized anxiety disorder; M54.50 Low back pain, unspecified

== ENCOUNTER → 2024-12-14 10:06 | Outpatient (BNVA) | payer MEDICARE, MEDICAID, SELFPAY | PROVIDERS: PCP Internal Medicine; Visit Provider Internal Medicine | DX: R35.89 Other polyuria (principal); R63.8 Other symptoms and signs concerning food and fluid intake; F41.1 Generalized anxiety disorder | CPT/HCPCS: 81003; 99212 ==

== ENCOUNTER 2025-01-19 11:52 | Outpatient (AMB) | payer MEDICARE, MEDICAID, SELFPAY ==
[2025-01-19 11:53] VITALS: BP 100/80; PULSE 99; RESP 17; TEMP 37; O2SAT 96; BMI 28.8
--- NOTE | 2025-01-19 11:53 | AM.OFFWIN_ITS ---
Intake Vital Signs 01/19/25 11:53 Height 5 ft 5 in Weight 173 lb BMI 28.8 BP 100/80 Blood Pressure Location Lt brachial Position Sitting Respiration 17 Pulse 99 Pulse Source Pulse Oximeter Temp 98.6 F Temp Source Oral Pulse Oximetry (%) 96 Intake Visit Reasons: EP-sob, cough, dizziness Intake Note: Pt is here today c/o SOB,cough and vertigo Patient Tobacco Use Status: Former Tobacco user Allergies acetaminophen [From TYLENOL] Allergy (Unknown, Verified 01/19/25 11:54) UNKNOWN shellfish derived [SHELLFISH DERIVED] Allergy (Unknown, Verified 01/19/25 11:54) HIVES bee pollen [bee stings] Allergy (Verified 01/19/25 11:54) Anaphylaxis From PHENERGAN Allergy (Unknown, Uncoded 01/19/25 11:54) MUSCLE SPASMS HPI HPI Comments History of Present Illness Details History - The patient is a 39-year-old female pr esenting with acute respiratory symptoms of coughing and shortness of breath. She has experienced a burning sensation in her lungs with frequent use of a friend's nebulizer containing albuterol to relieve symptoms. The patient has a significant history of smoking, now using nicotine gum, and suspects she has asthma however no formal diagnosis or PFT's have been done. She experiences shortness of breath, especially when lying down, accompanied by headaches from excessive coughing. Occasional wheezing is noted without the presence of fever, sinus, or ear pain. The patient reports frequent past upper respiratory infections, with this episode showing throat erythema. Previous adverse reactions to oral steroids, manifesting in mood disturbances, were noted, resulting in her preference for inhalers and nebulizers over systemic steroid use. Physical Exam General: Cooperative, healthy appearing, comfortable and no acute distress Orientation/consciousness: Patient oriented x3 Limitations: No limitations Head: Normal to inspection Ears: Hearing grossly normal bilaterally, external ears normal and TM's normal bilaterally, left EAC slight erythema Nose: Normal external nose present, Normal nares present and No nasal discharge present Face and sinus: Normal facial exam and Yes sinuses nontender Mouth: Normal oral and palatal mucosa present and moist mucous membranes Throat: Yes tonsils normal, Yes uvula midline. Posterior oropharynx erythema and redness noted Eyes: Appearance normal, both eyes and all related structures Neck: Normal visual inspection Respiratory: Clear to auscultation bilaterally. Normal respiratory effort, able to speak in complete sentences, Actively coughing, no respiratory distress, not tachypneic, no tripod positioning and no use of accessory muscles Cardiovascular: Regular rate and rhythm. Normal S1 and S2 Skin: No rashes or lesions noted Neuro: Patient oriented x3 Extremities: Normal to inspection and Yes no clubbing, cyanosis or edema PFSH Social History Alcohol intake: current Alcohol intake frequency: holidays/special occasions only Patient Tobacco Use Status: Former Tobacco user Review of Systems Const All systems reviewed & are unremarkable except as noted in HPI and below Physical Exam Vital Signs: Last Vital Signs Temp 98.6 F 01/19/25 11:53 Pulse 99 01/19/25 11:53 Resp 17 01/19/25 11:53 BP 100/80 01/19/25 11:53 Pulse Ox 96 01/19/25 11:53 BMI result Body Mass Index 28.8 Assessment & Plan Assessment & Plan (1) Asthma exacerbation, mild: Code(s): J45.901 - Unspecified asthma with (acute) exacerbation Plan: O2 sat 96% otherwise VSS, pt well appearing and PE unremarkable. The patient will be started on an albuterol inhaler with a spacer to aid in improving respiratory symptoms, given her history suggesting asthma with frequent exace rbations. Given her adverse reactions to systemic corticosteroids, treatment will prioritize inhalation therapy. A chest x-ray is ordered to rule out pneumonia due to recent symptoms and exposure risk. Further diagnostic work, including pulmonary function testing, will be deferred to her primary care provider to confirm asthma diagnosis. An empathetic discussion about choosing a primary care provider to improve long-term care and overall health satisfaction was emphasized. Hydration and rest are recommended as supportive care. . Patient was informed and verbally consented to the use of an ambient scribe for clinic note documentation during this visit (2) URI, acute: Code(s): J06.9 - Acute upper respiratory infection, unspecified Plan: as above Orders: Orders XR chest 2V Today R05.9 - Cough, unspecified Medications: New albuterol sulfate 90 mcg/actuation 2 puffs inhalation Q6H PRN 8.5 grams 0RF shortness of breath or wheezing or cough inhalational spacing device (BreatheRite MDI Spacer) As directed 1 ea 0RF albuterol sulfate 1.25 mg (3 mL) inhalation Q4-6H PRN 75 mL 0RF Shortness Of Breath Or Wheezing Coding Level of Care Code New Pt Level 4 (23926) Diagnoses Asthma exacerbation, mild J45.901 URI, acute J06.9
--- OUTSIDE RECORDS SUMMARY | 2025-01-19 11:54 | XMS_ITS | Data Portability ---
Author Organization [facility] [address] [address] Address [address] [place] [address] Assessment No assessment recorded. Plan of Treatment Reminders Order Date Submit Date Provider Last Modified By Organization Details Last Modified Time Details Appointments None recorded. Lab None recorded. Referral None recorded. Procedures None recorded. Surgeries None recorded. Imaging None recorded. Medication Orders valacyclovi r 1 gram tablet 2022 023 [facility]/Pharmacy #[id number], [address] [facility] [place], [address], 12:49:30 Patient TargetsNo targets recorded. Patient Instructions Encounter Date Encounter Id Patient Instructions Last Modified By Organization Details Last Modified Time 11/17/2022 [id number] cold sores: care instructions [email or web address] Not available 11/17/2022 12:49:44 cold sores education Not available 11/17/2022 12:49:44 Take the medication as prescribed. See printed instructions. Follow-up with your doctor as needed. Seek Emergency Medical evaluation for any worsening symptoms. [email or web address] Not available 11/17/2022 12:50:20 Reason for Referral None Reported. Problems Name Problem SNOMED Code Status Onset Date Resolution Date Notes Provider Name and Address Organization Details Recorded Time Asthma 584111704 Active 2022 Meenakshisumaya jacobo, PA - [facility] 3 12:06:00 Posttraumatic stress disorder 91765744 Active 2022 Meenakshi Mike odalis PA - [facility] 12:08:33 Problem Notes None recorded. Medical Equipment None Reported. Allergies Allergen ID Allergen Name Allergen Category Reaction Reaction Severity Criticality Documentation Date Start Date Code Code System Note Provider Name and Address Organization Details Recorded Time 171448 Tylenol medicatio n Not available Not available Not available 11/17/202260323 3 RxNorm Meenakshi jacobo, PA - [facility] 12:05:42 518967 ibuprofen medicatio n Not available Not available [...] saturation in Arterial blood by Pulse oximetry Heart rate Respiratory rate Body temperature Body mass index (BMI) Body weight Systolic blood pressure Diastolic blood pressure Provider Name and Address Organization Details Last Updated DateTime 3 162.56 cm 99 % 99 % 93 /min 20 /min 97.8 [degF] 29.9 kg/m2 65992.1 5 g 121 mm[Hg] 86 mm[Hg] Meenakshi Dillonbe PA - [facility] 12:07:44 Social History Question Answer Notes LastModified by [employer] Details LastModified Time Tobacco Smoking Status Current Every Day Smoker Meenakshi Mckeon odalis, PA - [facility] 11/17/2022 12:06:20 How Much Tobacco Do You Smoke? 0.5 PPD Information not available 11/17/2022 Sex: Unknown Functional Status Question Answer Note LastModified by [employer] Details LastModified Time Do you use any illicit or recreational drugs? No Information not available 11/17/2022 Do you or have you ever used any other forms of tobacco or nicotine? No Information not available 11/17/2022 What is your level of alcohol consumption? None Information not available 11/17/2022 Mental Status None recorded. Family History Relationship [...] [facility] 11/17/2022 12:05:05 MMR 8 completed Meenakshi Downey null, PA - [facility] 11/17/2022 12:05:05 COVID-19, mRNA, LNP-S, PF, 30 mcg/0.3 mL dose 1 completed Meenakshi Mike null, PA - [facility] 11/17/2022 12:05:05 Tdap 8 completed Meenakshi Downey null, PA - [facility] 11/17/2022 12:05:05 DTP 8 completed Meenakshi Mike null, PA - [facility] 11/17/2022 12:05:05 DTP 8 completed Meenakshi Mike null, PA - [facility] 11/17/2022 12:05:05 DTP 1 completed Meenakshi Downey null, PA - [facility] 11/17/2022 12:05:05 DTP 6 completed Meenakshi Mike null, PA - [facility] 11/17/2022 12:05:05 DTP 8 completed Meenakshi Mike null, PA - [facility] 11/17/2022 12:05:05 OPV 8 completed Meenakshi Downey null, PA - [facility] 11/17/2022 12:05:05 OPV 1 completed Meenakshi Downey null, PA - [facility] 11/17/2022 12:05:05 OPV 6 completed Meenakshi Downey null, PA - [facility] 11/17/2022 12:05:05 OPV 8 completed Meenakshi Mike null, PA - [facility] 11/17/2022 12:05:05 Td (adult), 2 Lf tetanus toxoid, preservative free, adsorbed 9 completed Meenakshi Mike null, PA - [facility] 11/17/2022 12:05:05 Td (adult), 2 Lf tetanus toxoid, preservative free, adsorbed 8 completed Meenakshi Mike null, PA - [facility] 11/17/2022 12:05:05 Hep B, adolescent or pediatric 8 completed Meenakshi Downey null, PA - [facility] 11/17/2022 12:05:05 Hep B, adolescent or pediatric 9 completed Meenakshi Downey null, PA - [facility] 11/17/2022 12:05:05 Hep B, adolescent or pediatric 9 completed Meenakshi Downey null, PA - [facility] 11/17/2022 12:05:05 Hib (HbOC) 8 completed Meenakshi Downey null, PA - [facility] 11/17/2022 12:05:05 Past Encounters Encounter ID Performer Location Encounter Start Date Encounter Closed Date Diagnosis/Indication Diagnosis SNOMED-CT Code Diagnosis ICD10 Code Diagnosis Note [id number] [address] [address] [address] [address] [place] [address] 06/19/2018 16:07:57 06/19/2018 17:51:03 [id number] [address] [address] [address] [address] [place] [address] 07/28/2019 13:14:45 07/28/2019 13:41:00 [id number] [address] [address] [address] [place] [address] 08/27/2021 10:10:39 08/27/2021 12:07:32 [id number] [address] [place] [address] 11/13/2017 13:06:21 11/13/2017 15:36:18 [id number] [address] [place] [address] 11/08/2017 13:44:21 11/08/2017 15:13:46 [id number] [address] [address] [address] [place] [address] 02/17/2017 19:40:33 02/17/2017 20:00:29 [id number] [address] [address] [place] [address] 12/25/2018 19:31:52 12/25/2018 20:32:00 [id number] [address] [address] [place] [address] 09/09/2020 17:54:45 09/09/2020 19:27:09 [id number] [address] [place] [address] 07/26/2018 17:45:11 07/26/2018 18:32:41 [id number] [address] [address] [place] [address] 11/23/2016 19:38:25 11/24/2016 11:59:37 [id number] [address] [place] [address] 06/22/2020 17:07:50 06/22/2020 18:28:26 [id number] [address] [place] [address] 11/13/2018 18:21:21 11/13/2018 18:45:07 [id number] [address] [facility] [place] [address] 02/15/2021 11:49:08 02/15/2021 12:47:41 [id number] [address] [place] [address] 04/04/2016 16:56:44 04/04/2016 17:27:39 [id number] [address] [place] [address] 05/26/2015 09:41:23 05/26/2015 10:17:44 [id number] [address] [place] [address] 10/20/2016 11:16:13 10/20/2016 11:58:59 [id number] [address] [place] [address] 10/31/2017 19:06:43 10/31/2017 19:54:27 [id number] [address] [place] [address] 08/09/2018 10:35:13 08/09/2018 11:42:16 [id number] [address] [place] [address] 03/09/2018 12:53:29 03/09/2018 13:50:11 [id number] [address] [place] [address] 05/20/2018 19:29:19 05/20/2018 20:04:30 [id number] [address] [place] [address] 02/27/2022 17:56:18 02/27/2022 19:56:05 [id number] [address] [place] [address] 04/18/2017 19:20:32 04/18/2017 20:13:42 [id number] [address] [place] [address] 01/11/2017 19:58:57 01/11/2017 21:12:52 [id number] [address] [place] [address] 11/19/2018 19:10:58 11/19/2018 20:40:56 [id number] [address] [place] [address] 10/09/2019 10:15:29 10/09/2019 10:54:03 [id number] Simona Blackwood MD [address] [place] [address] 11/17/2022 09:26:59 11/17/2022 12:50:56 Herpes labialis [id number] B00.1 Health Concerns Section Related Observation LastModified by Organization Detai ls LastModified Time None Recorded Concern Status LastModified by Organization Details LastModified Time None Recorded Advance Directives Directive None Recorded Payers Insurance Date Sequence Insurance Name Policy Number Policy Kingsley Covered Member ID Kingsley Member ID Guarantor Name 01/03/2023 1 [facility] (MEDICAID REPLACEMENT - HMO) ALIE Sutherland [id number] Evelia Sutherland Notes Date Note Type Note Provider Name [...] symptoms or body aches. Simona Blackwood MD [address] [place] [address] [place], [address], [place] - [facility] 11/17/2022 12:57:51 OBGyn Episode No OBEpisode recorded.
--- OUTSIDE RECORDS SUMMARY | 2025-01-19 11:54 | XMS_ITS | Clinical Summary ---
Author Organization [facility] Address [address] [place] [address] Care Team Providers Care Tractor Mechanic Name Role Phone Unavailable Primary Care Provider Unavailabl e Social History Tobacco Use Types Packs/Day Years Used Date Smoking Tobacco: Never Assessed Sex and Gender Information Value Date Recorded Sex Assigned at Not on file Gender Identity Not on file Sexual Orientation Not on file Plan of Treatment Not on file
== END 2025-01-19 12:20 | disposition home or self-care (01) ==
PROVIDERS: PCP Internal Medicine; Visit Provider Physician Assistant
DX: J45.901 Unspecified asthma with (acute) exacerbation (principal); J06.9 Acute upper respiratory infection, unspecified

== ENCOUNTER 2025-01-19 11:52 | Outpatient (REF) | payer MEDICARE, MEDICAID, SELFPAY ==
--- NOTE | ~2025-01-19 | XR_ITS ---
CLINICAL HISTORY: R05.9 - Cough, unspecified 2 view chest x-ray Comparison: CR/SR - XR CHEST 2V - 06/11/24 00:52 EDT Findings: The lungs are clear. Heart size is normal. No acute fracture. IMPRESSION: 1. No acute findings. This document has been electronically signed by: Tracey Giraldo MD on 01/19/2025 13:11:52
--- OUTSIDE RECORDS SUMMARY | 2025-01-19 12:14 | XMS_ITS | Clinical Summary ---
Author Organization [facility] Address [address] [place] [address] Care Team Providers Care Home Health Nurse Name Role Phone Unavailable Primary Care Provider Unavailabl e Social History Tobacco Use Types Packs/Day Years Used Date Smoking Tobacco: Never Assessed Sex and Gender Information Value Date Recorded Sex Assigned at Not on file Gender Identity Not on file Sexual Orientation Not on file Plan of Treatment Not on file
== END 2025-01-19 11:53 | disposition home or self-care (01) ==
LOC: HO.HMGCX 11:52
PROVIDERS: PCP Internal Medicine; Visit Provider Physician Assistant
DX: J45.901 Unspecified asthma with (acute) exacerbation (principal); J06.9 Acute upper respiratory infection, unspecified; R05.9 Cough, unspecified
CPT/HCPCS: 71046; 99202

== ENCOUNTER → 2025-01-19 12:19 | Outpatient (BNV) | payer MEDICARE, MEDICAID, SELFPAY | PROVIDERS: PCP Internal Medicine; Visit Provider Radiology Diagnostic Radiology | DX: R05.9 Cough, unspecified (principal) | CPT/HCPCS: 71046 ==